=== PATIENT | female | born 1940 | race Caucasian/White ===

== ENCOUNTER → 2017-06-14 | Day surgery (SDC) | payer OTHER ==
[~2017-06-14] VITALS: Ht 167.6 cm; Wt 55.8 kg
[~2017-06-14] MED LIST: ATORVASTATIN CA10 M1 PO
--- NOTE | ~2017-06-14 | O ---
[place], [place] OPERATIVE NOTE NAME: MAYKEL RAMIREZ [facility] [id number] UNIT #: [id number] ROOM: DOCTOR: MALLORY CUEVA MD BIRTHDATE: [birth year] DOS: 06/14/2017 PREOPERATIVE DIAGNOSIS: Cataract, left eye. POSTOPERATIVE DIAGNOSIS: Cataract, left eye. OPERATION: Extracapsular cataract extraction by phacoemulsification with posterior chamber intraocular lens implantation, left eye. ANESTHESIA: Monitored standby. OPERATIVE FINDINGS AND PROCEDURE: 2% Xylocaine topical anesthetic gel was applied to the eye in the preop area. The patient was taken to the operating room and prepped and draped in the standard fashion for sterile intraocular surgery. A time out procedure was performed verifying correct patient, correct site and corrects lens with Basilio Cueva M.D. The operating microscope was swung into position and the lid speculum was inserted. Using a Karine paracentesis blade, a paracentesis was made through clear cornea. Viscoelastic was used to fill the anterior chamber. Using a metal keratome a 2.4 mm self-sealing clear corneal cataract incision was made temporally at the limbus. Using a pre-bent 25 gauge cystotome needle, a standard continuous curvilinear capsulorrhexis was performed. The anterior capsule was removed with forceps. The lens nucleus was hydrodissected and phacoemulsified in the posterior chamber. Cortical material was removed with the irrigation aspiration hand piece and the posterior capsule was then polished with a curet under irrigation. The posterior chamber and capsular bag were filled with viscoelastic. A posterior chamber intraocular lens manufactured by: [employer], Model #[id number], and 23.0 diopters in strength were then inserted into the posterior chamber and within the capsular bag using the lens cartridge and injector system. Viscoelastic was removed using the irrigation aspiration handpiece. The anterior chamber was filled with balanced salt solution through the paracentesis. Both the paracentesis site and cataract incisions were hydrated with BSS and verified to be water-tight and self-sealing. Cefuroxime 1 mg/0.1 mL was injected into the anterior chamber through the paracentesis site. The incision checked to be water-tight using a Weck-Corina sponge. The integrity of the cataract wound and ocular tension were checked. Lid speculum and drapes were removed. The patient was transferred from the operating room to the recovery room in satisfactory condition. [place], [place] OPERATIVE NOTE NAME: MAYKEL RAMIREZ UNIT #: [id number] ROOM: DOCTOR: MALLORY CUEVA MD BIRTHDATE: [birth year] MALLORY CUEVA MD CM:OPRECORD:OPERATIVE NOTE 1203 [id number] MALLORY CUEVA MD 06/14/17 1225 interface
[2017-06-14 10:45] VITALS: BP 143/86
[2017-06-14 11:49] VITALS: BP 113/80
[2017-06-14 12:05] VITALS: BP 112/74
[2017-06-14 12:20] VITALS: BP 122/71
== END | disposition home or self-care (01) ==
LOC: SDC 06-09 08:00
DX: H25.812 Combined forms of age-related cataract, left eye (principal); I10 Essential (primary) hypertension; I25.10 Atherosclerotic heart disease of native coronary artery without angina pectoris; M19.90 Unspecified osteoarthritis, unspecified site; J44.9 Chronic obstructive pulmonary disease, unspecified; E78.00 Pure hypercholesterolemia, unspecified; F17.210 Nicotine dependence, cigarettes, uncomplicated; Z79.899 Other long term (current) drug therapy